=== PATIENT | female | born 1970 | race African-American/Black ===

== ENCOUNTER 2016-09-13 10:21 | Emergency (ER) | payer MEDICAID ==
[~2016-09-13] VITALS: Ht 157.5 cm; Wt 111.1 kg
[~2016-09-13 10:21] MED LIST: GLIPIZIDE5 MG ORAL; LEVEMIR100 UNIT/1 SUBQ; METFORMIN HCL500 M1 ORAL; NOVOLOG100 UNIT/4 SQ; PENICILLIN V P500 MG PO; PHENAZOPYRIDIN100 MG ORAL
[2016-09-13] MEDS ORDERED: IRON325 M1 PO (10:29)
[2016-09-13] MEDS ORDERED: LANTUS SOL100 UNIT/1 SUBQ (10:29)
[2016-09-13] MEDS ORDERED: LISINOPRIL5 MG ORAL (10:29)
[2016-09-13] MEDS ORDERED: METFORMIN HCL850 M1 ORAL (10:29)
[2016-09-13 10:40] VITALS: BP 103/58
[2016-09-13] MEDS ORDERED: Ipratropium 0.02% Inh Soln 2.5ml UD HHN ONE (10:45)
[2016-09-13] MEDS ORDERED: Albuterol ud Inhalation HHN ONE (10:45)
--- NOTE | 2016-09-13 10:55 | Emergency Room Report ---
History of Present Illness General Chief Complaint: Upper Respiratory Illness Source: Patient Present Illness HPI Patient presents with complaints of cough and congestion She noticed some wheezing as well which is unusual for her Denies any vomiting or diarrhea Denies any fevers she had some mild chills Denies any back or flank pain Denies any chest pain however she did feel short of breath at times with increased cough Denies any neck pain or photophobia Allergies: Coded Allergies: No Known Allergies (Verified Allergy, Mild, 02/10/11) Patient History Past Medical History: see triage record Pertinent Family History: none Last Menstrual Period: 09/13/16 Reviewed Nursing Documentation: PMH: Agreed, PSxH: Agreed Nursing Documentation-PMH Past Medical History: No History, Except For Hx Diabetes: Yes Review of Systems All Other Systems: negative except mentioned in HPI Physical Exam Vital Signs Date Time Temp Pulse Resp B/P Pulse Ox O2 Delivery O2 Flow Rate FiO2 09/13/16 10:23 98.6 89 18 120/67 96 Room Air Sp02 EP Interpretation: reviewed, normal General Appearance: well appearing, no apparent distress Head: normocephalic, atraumatic Eyes: bilateral eye EOMI, bilateral eye PERRL ENT: hearing grossly normal, normal pharynx, TMs + canals normal, uvula midline Neck: full range of motion, supple, no meningismus, no bony tend Respiratory: no rhonchi, no respiratory distress, no retraction, no accessory muscle use, crackles - Fine crackles with the finding wheezing noted in both mid lobes Cardiovascular #1: normal peripheral pulses, regular rate, rhythm, no edema, no gallop, no JVD, no murmur Gastrointestinal: normal bowel sounds, non tender, soft, no mass, no organomegaly, non-distended, no guarding, no hernia, no pulsatile mass, no rebound Genitourinary: no CVA tenderness Musculoskeletal: normal inspection Neurologic: oriented x3, responsive, planning aide III-XII nml as tested, motor strength/ tone normal, sensory intact Psychiatric: mood/affect normal Skin: normal color, no rash, warm/dry, palpation normal Lymphatic: normal inspection, no adenopathy Medical Decision Making Diagnostic Impression: Primary Impression: Upper respiratory infection ER Course Given the patient's presentation imaging study was obtained There are some increased markings in the right side compared to before Patient continues to saturate well no signs of any respiratory distress And will have initial conservative outpatient trial on antibiotics Chest X-Ray Diagnostic Results EP Interpretation: Yes Findings: no effusion, no pneumothorax, other - Right lower lobe increased marking, possible early pneumonia versus, other Number of Views: 1 Last Vital Signs Date Time Temp Pulse Resp B/P Pulse Ox O2 Delivery O2 Flow Rate FiO2 09/13/16 10:40 75 15 Room Air 09/13/16 10:40 98.0 103/58 100 Status: improved Disposition: HOME, SELF-CARE Condition: Improved Scripts Prednisone* (PREDNISONE*) 20 Mg Tablet 20 MG ORAL BID, #6 TAB Prov: CHRISTOPHER HUTSON D.O. 09/13/16 Albuterol Sulfate* (ALBUTEROL SULFATE MDI*) 8.5 Gm Hfa.aer.ad 2 PUFF INH Q6H, #1 EA 0 Refills Prov: CHRISTOPHER HUTSON D.O. 09/13/16 Referrals: NON PHYSICIAN (PCP) Additional Instructions: Patient is provided with the discharge instructions notified to follow up with primary doctor in the next 2-3 days otherwise return to the er with any worsening symptoms. Please note that this report is being documented using [employer] technology. This can lead to erroneous entry secondary to incorrect interpretation by the dictating instrument. CHRISTOPHER HUTSON D.O. Sep 13, 2016 10:54
[2016-09-13 11:30] VITALS: BP 113/69
[2016-09-13] MEDS ORDERED: PREDNISONE20 MG ORAL (11:45)
[2016-09-13] MEDS ORDERED: AZITHROMYCIN250 MG ORAL (11:45)
[2016-09-13] MEDS ORDERED: ALBUTEROL SULF8.5 GM INH (11:45)
[2016-09-13 12:00] VITALS: BP 113/69
--- NOTE | 2016-09-13 12:29 | Diagnostic Imaging Report ---
Clinical history: Shortness of breath Technique: Portable AP chest radiograph was obtained. Comparison: 12/15/13. Findings: Exam sensitivity is diminished due to patient's body habitus. Lung volumes are low. Subtle opacity in the right lung base may represent atelectasis or pneumonia. There is no pulmonary edema. There is no pleural effusion or pneumothorax. The cardiac and mediastinal silhouettes are normal in appearance. The bony thorax is unremarkable. Impression: Low lung volumes with suspected atelectasis or developing pneumonia in the right lower lung. Clinical correlation and followup PA and lateral chest radiographs in full inspiration after appropriate therapy is recommended to ensure resolution.
== END 2016-09-13 12:02 | disposition home or self-care (01) ==
LOC: EMR 10:42
DX: J06.9 Acute upper respiratory infection, unspecified (principal)
CPT/HCPCS: 71010; 94640; 94664; 99284

== ENCOUNTER 2017-01-20 03:25 | Emergency (ER) | payer MEDICAID ==
[~2017-01-20] VITALS: Ht 160 cm; Wt 108.0 kg
[~2017-01-20 03:25] MED LIST changes: +ALBUTEROL SULF8.5 GM INH; +AZITHROMYCIN250 MG ORAL; +IRON325 M1 PO; +LANTUS SOL100 UNIT/1 SUBQ; +LISINOPRIL5 MG ORAL; +METFORMIN HCL850 M1 ORAL; +PREDNISONE20 MG ORAL
[2017-01-20 03:40] VITALS: BP 116/71
[2017-01-20] MEDS ORDERED: PredniSONE 20mg tab ORAL ONE (03:45)
[2017-01-20] MEDS ORDERED: Ipratropium 0.02% Inh Soln 2.5ml UD HHN ONE (03:45)
[2017-01-20] MEDS ORDERED: Albuterol ud Inhalation HHN ONE (03:45)
--- NOTE | 2017-01-20 03:46 | Emergency Room Report ---
History of Present Illness General Chief Complaint: Dyspnea/Respdistress Source: Patient Present Illness HPI Is a 46-year-old female with history of diabetes and high blood pressure. She had several ER visit for wheezing and diagnosed with bronchitis. Never had a definitive diagnosis of asthma. She does use an inhaler at home. She presents with coughing and wheezing for the last couple days. No fever or chills no nausea no vomiting. No chest pain. Allergies: Coded Allergies: No Known Allergies (Verified Allergy, Mild, 02/10/11) Patient History Past Medical History: see triage record, old chart reviewed, DM, HTN Past Surgical History: other Pertinent Family History: none Social History: Denies: alcohol use Last Menstrual Period: 12/25/16 Now: No Immunizations: other Reviewed Nursing Documentation: PMH: Agreed, PSxH: Agreed Nursing Documentation-PMH Past Medical History: No History, Except For Hx Diabetes: Yes Review of Systems Eye: Denies: blurred vision, eye pain ENT: Denies: ear pain, nose congestion, throat swelling Respiratory: Reports: cough, shortness of breath, wheezing Cardiovascular: Denies: chest pain, palpitations Gastrointestinal: Denies: abdominal pain, diarrhea, nausea, vomiting Musculoskeletal: Denies: back pain, joint pain Skin: Denies: rash Neurological: Denies: headache, numbness Endocrine: Denies: increased thirst, increased urine Hematologic/Lymphatic: Denies: easy bruising All Other Systems: negative except mentioned in HPI Physical Exam Vital Signs Date Time Temp Pulse Resp B/P Pulse Ox O2 Delivery O2 Flow Rate FiO2 01/20/17 03:31 98.1 82 16 116/71 100 Room Air vitals unremarkable Sp02 EP Interpretation: reviewed, normal General Appearance: well appearing, no apparent distress, alert Head: normocephalic, atraumatic Eyes: bilateral eye EOMI, bilateral eye PERRL ENT: hearing grossly normal, normal pharynx Neck: full range of motion, supple, no meningismus Respiratory: chest non-tender, wheezing - Slight Cardiovascular #1: regular rate, rhythm, no murmur Gastrointestinal: normal bowel sounds, non tender, no mass, no organomegaly, no bruit, non-distended Musculoskeletal: back normal, gait/station normal, normal range of motion Psychiatric: mood/affect normal Skin: warm/dry Medical Decision Making Diagnostic Impression: Primary Impression: Asthma exacerbation Additional Impression: Viral respiratory illness ER Course Presents with respiratory illness and wheezing. Most likely asthma. She fell better now and no longer wheezing. We'll discharge home. Clinically no evidence of ACS, PE, dissection to name a few. Last Vital Signs Date Time Temp Pulse Resp B/P Pulse Ox O2 Delivery O2 Flow Rate FiO2 01/20/17 03:31 98.1 82 16 116/71 100 Room Air Status: improved Disposition: HOME, SELF-CARE Condition: Stable Scripts Prednisone* (PREDNISONE*) 20 Mg Tablet 60 MG ORAL DAILY, #12 TAB Prov: EKATERINA GEE M.D. 01/20/17 Albuterol Sulfate* (ALBUTEROL SULFATE MDI*) 8.5 Gm Hfa.aer.ad 2 PUFF INH Q4H Y for cough/wheezing, #1 EA 0 Refills Prov: EKATERINA GEE M.D. 01/20/17 Additional Instructions: Followup with your Dr. in 2-3 days. Return if symptom worsen. You may end up with diagnosis of asthma. EKATERINA GEE M.D. Jan 20, 2017 03:46
[2017-01-20 04:15] VITALS: BP 130/67
[2017-01-20] MEDS ORDERED: ALBUTEROL SULF8.5 GM INH (04:25)
[2017-01-20] MEDS ORDERED: PREDNISONE20 MG ORAL (04:25)
[2017-01-20 04:34] VITALS: BP 130/67
== END 2017-01-20 04:35 | disposition home or self-care (01) ==
LOC: EMR 03:38
DX: J45.901 Unspecified asthma with (acute) exacerbation (principal); B34.9 Viral infection, unspecified; E11.9 Type 2 diabetes mellitus without complications
CPT/HCPCS: 94640; 94664; 99284

== ENCOUNTER 2018-01-14 16:30 | Emergency (ER) | payer MEDICAID ==
[~2018-01-14] VITALS: Ht 157.5 cm; Wt 105.2 kg
--- NOTE | 2018-01-14 17:20 | Emergency Room Report ---
History of Present Illness General Chief Complaint: Lower Extremity Injury Source: Patient Present Illness HPI 47-year-old female presents emergency department complaining of 9 out of 10 in severity localized right sided lateral foot pain and ankle pain status post chemical trip and fall approximately 2 hours ago. Patient states she was out shopping and when she was outside she describes having an inversion injury. states that she was walking normally and she just, tripped over her own foot. Patient denies dizziness prior to fall she denies chest pain or palpitations. She reports history of diabetes she states that she has noticed that she has had 3 falls within the last few weeks this time she actually fell to the time she caught herself however she states it is unusual for her. Patient states she did not hit her head she did not lose consciousness does not have pain elsewhere on the body. Patient reports swelling to the lateral right ankle. Patient states that posterior ankle and medial ankle are fine and are not tender. Denies numbness tingling or loss of sensation or gross motor movements of the extremities, incontinence of bowel or bladder. Denies CP, Palpitations, LOC, AMS, dizziness, Changes in Vision, weakness or a sudden severe headache. Allergies: Coded Allergies: No Known Allergies (Verified Allergy, Mild, 02/10/11) Patient History Past Medical History: see triage record Past Surgical History: none Pertinent Family History: none Last Menstrual Period: 01/12/18 Now: No : 3 Para: 2 Immunizations: UTD Reviewed Nursing Documentation: PMH: Agreed; PSxH: Agreed Nursing Documentation-PMH Past Medical History: No History, Except For Hx Diabetes: Yes Review of Systems All Other Systems: negative except mentioned in HPI Physical Exam Vital Signs Date Time Temp Pulse Resp B/P (MAP) Pulse Ox O2 Delivery O2 Flow Rate FiO2 01/14/18 16:41 98.0 93 18 100/60 98 Room Air 98.1 Sp02 EP Interpretation: reviewed, normal General Appearance: no apparent distress, alert, GCS 15, non-toxic Head: normocephalic, atraumatic ENT: hearing grossly normal, normal voice Neck: full range of motion Respiratory: lungs clear, normal breath sounds, speaking full sentences Cardiovascular #1: regular rate, rhythm, no edema, normal capillary refill Cardiovascular #2: 2+ dorsalis pedis (R) Musculoskeletal: back normal, normal range of motion, swelling - right lateral ankle, tender - Right lateral ankle Neurologic: alert, oriented x3, responsive, motor strength/tone normal, sensory intact, speech normal, grossly normal Psychiatric: judgement/insight normal Skin: normal color, no rash, warm/dry, well hydrated Medical Decision Making BEATRIZ Attestation Dr. Perdue is my supervising Physician whom patient management has been discussed with. Diagnostic Impression: Primary Impression: Fibula fracture Qualified Codes: S82.821A - Torus fracture of lower end of right fibula, initial encounter for closed fracture ER Course 47-year-old female presents emergency department complaining of 9 out of 10 in severity localized right sided lateral foot pain and ankle pain status post chemical trip and fall approximately 2 hours ago. Patient states she was out shopping and when she was outside she describes having an inversion injury. states that she was walking normally and she just, tripped over her own foot. Patient denies dizziness prior to fall she denies chest pain or palpitations. She reports history of diabetes she states that she has noticed that she has had 3 falls within the last few weeks this time she actually fell to the time she caught herself however she states it is unusual for her. Patient states she did not hit her head she did not lose consciousness does not have pain elsewhere on the body. Patient reports swelling to the lateral right ankle. Patient states that posterior ankle and medial ankle are fine and are not tender. Denies numbness tingling or loss of sensation or gross motor movements of the extremities, incontinence of bowel or bladder. Denies CP, Palpitations, LOC, AMS, dizziness, Changes in Vision, weakness or a sudden severe headache. Ddx considered but are not limited to Fracture, dislocation, contusion, Sprain/ Strain/Spasm Vital signs: are WNL, pt. is afebrile H&PE are most consistent with musculoskeletal injury will perform imaging to r/ o fractures/dislocations. ORDERS: - X-ray Right ankle 3 views - negative for fx, Dislocation, or significant soft tissue injury, per preliminary read in ED, and signed by BEATRIZ Bain , my supervising physician has reviewed, and agrees with my interpretation. ED INTERVENTIONS: - Motrin PO- pt. is driving. - Stirrup Splint applied to the right ankle by electroencephalograph technologist. pt. remains NVI before and after application. -Patient is provided with crutches and instructed on their use DISCHARGE: At this time pt. is stable for d/c to home. Will provide printed patient care instructions, and any necessary prescriptions. Care plan and follow up instructions have been discussed with the patient prior to discharge. Other X-Ray Diagnostic Results Other X-Ray Diagnostic Results : X-Ray ordered: Right ankle # of Views/Limited Vs Complete: 3 View Indication: Pain EP Interpretation: Yes PA Xray: Interpretation reviewed, by supervising MD, and agrees with findings. Interpretation: no dislocation, no soft tissue swelling, other - distal nondisplaced fibular fracture Impression: Other - abnormal Electronically Signed by: Lakeshia Bain PA-C Last Vital Signs Date Time Temp Pulse Resp B/P (MAP) Pulse Ox O2 Delivery O2 Flow Rate FiO2 01/14/18 17:10 98.0 01/14/18 16:41 93 18 100/60 98 Room Air Disposition: HOME, SELF-CARE Condition: Stable Patient Instructions: Ankle Fracture, Fibular Ankle Fracture Treated With or Without Immobilization, Adult Additional Instructions: Take medications as directed. Follow up with a Primary Care Provider in 3-5 days For ORTHOPEDIC FOLLOW UP REFERRAL, even if your symptoms have resolved. --Please review list of primary care clinics, if you do not already have a primary care provider Return sooner to ED if new symptoms occur, or current symptoms become worse. Do not drink alcohol, drive, or operate heavy machinery while taking [place] as this may cause drowsiness. - Please note that this Emergency Department Report was dictated using [employer] store manager technology software, occasionally this can lead to erroneous entry secondary to interpretation by the dictation equipment. Lakeshia Bain Jan 14, 2018 17:19
[2018-01-14] MEDS ORDERED: NORCO 5-325 TA1 EACH ORAL (17:49)
[2018-01-14] MEDS ORDERED: IBUPROFEN600 MG ORAL (17:49)
[2018-01-14 18:10] VITALS: BP 135/67
--- NOTE | 2018-01-14 18:16 | Diagnostic Imaging Report ---
EXAM: XR Right Ankle Complete, 3 Views CLINICAL HISTORY: PAIN TECHNIQUE: Frontal, lateral and oblique views of the right ankle. COMPARISON: No relevant prior studies available. FINDINGS: Bones/joints: Oblique fracture through the distal aspect of the fibula. No plain film evidence for dislocation. Posterior calcaneal bone spur. Soft tissues: Soft tissue swelling about the ankle. IMPRESSION: Oblique fracture through the distal aspect of the fibula.
== END 2018-01-14 18:34 | disposition home or self-care (01) ==
LOC: EMR 17:43
DX: S82.821A Torus fracture of lower end of right fibula, initial encounter for closed fracture (principal); W19.XXXA Unspecified fall, initial encounter; Y92.512 Supermarket, store or market as the place of occurrence of the external cause; E11.9 Type 2 diabetes mellitus without complications
CPT/HCPCS: 99283

== ENCOUNTER 2018-01-16 20:34 | Emergency (ER) | payer MEDICAID ==
[~2018-01-16] VITALS: Ht 160 cm; Wt 104.3 kg
[~2018-01-16 20:34] MED LIST changes: +IBUPROFEN600 MG ORAL; +NORCO 5-325 TA1 EACH ORAL
[2018-01-16 21:23] VITALS: BP 103/56
--- NOTE | 2018-01-16 22:46 | Emergency Room Report ---
History of Present Illness General Chief Complaint: Lower Extremity Injury Source: Patient Present Illness HPI 47-year-old female presents ED for evaluation. Patient complaining of right ankle pain and swelling. Was seen here 2 days ago noted have fibula fracture. Patient was splinted. Given crutches. Patient states she is here because she noticed increased swelling. Pain is throbbing, 8 out of 10, nonradiating. Denies chest pain or shortness of breath. Denies fevers chills. No other aggravating relieving factors. Denies any other associated symptoms Allergies: Coded Allergies: No Known Allergies (Verified Allergy, Mild, 02/10/11) Patient History Past Medical History: DM Pertinent Family History: none Social History: Denies: smoking, alcohol use, drug use Last Menstrual Period: 01/10/18 Now: No Immunizations: UTD Reviewed Nursing Documentation: PMH: Agreed; PSxH: Agreed Nursing Documentation-PMH Past Medical History: No History, Except For Hx Diabetes: Yes Hx Neurological Problems: No - Fibula Fracture Review of Systems All Other Systems: negative except mentioned in HPI Physical Exam Vital Signs Date Time Temp Pulse Resp B/P (MAP) Pulse Ox O2 Delivery O2 Flow Rate FiO2 01/16/18 20:52 98.3 89 16 103/56 98 Room Air 98.2 Sp02 EP Interpretation: reviewed, normal General Appearance: no apparent distress, alert, GCS 15, non-toxic Head: normocephalic Eyes: bilateral eye normal inspection, bilateral eye PERRL ENT: normal ENT inspection Neck: normal inspection Respiratory: normal inspection Cardiovascular #1: normal inspection Gastrointestinal: normal inspection Rectal: deferred Genitourinary: no CVA tenderness Musculoskeletal: no calf tenderness, swelling - R ankle Neurologic: alert, oriented x3, responsive, motor strength/tone normal, sensory intact, speech normal Psychiatric: judgement/insight normal, memory normal, mood/affect normal, no suicidal/homicidal ideation Skin: normal color, no rash, warm/dry, well hydrated Lymphatic: normal inspection Medical Decision Making Diagnostic Impression: Primary Impression: Fibula fracture Qualified Codes: S82.831D - Other fracture of upper and lower end of right fibula, subsequent encounter for closed fracture with routine healing Additional Impression: Aftercare for cast or splint check or change ER Course Hospital Course 47-year-old female presents ED complaining of right ankle pain and swelling. Status post fibula fracture Clinical course Patient placed on stretcher. After initial history physical exam reveals a middle-aged female in no acute distress. There is some swelling noted to the right ankle. Distal pulses intact. Skin is warm and dry. No skin mottling. No calf tenderness. My suspicion for DVT is low. My suspicion for compartment syndrome is low. This is most likely appropriate swelling given the fracture. Patient states she was not aware that there would be swelling so she became concerned. I also believe that the splint was applied too tight We will reapply the splint accordingly. I believe patient is safe for discharge and will follow up with Ortho as scheduled Diagnosis - fibula fx, aftecare for cast or splint check Stable and discharged to home. Apply ice. Keep elevated. Followup with ortho. Return to ED if any signs of infection develop Last Vital Signs Date Time Temp Pulse Resp B/P (MAP) Pulse Ox O2 Delivery O2 Flow Rate FiO2 01/16/18 21:23 98.3 16 103/56 98 Room Air 98.2 01/16/18 20:52 89 Status: improved Disposition: HOME, SELF-CARE Condition: Stable Referrals: Bert Andujar MD NON PHYSICIAN (PCP) Patient Instructions: Fibular Fracture With [facility] Maurice Dias MD Jan 16, 2018 22:46
== END 2018-01-16 21:23 | disposition home or self-care (01) ==
LOC: EMR 21:05
DX: S82.401D Unspecified fracture of shaft of right fibula, subsequent encounter for closed fracture with routine healing (principal); X58.XXXD Exposure to other specified factors, subsequent encounter; Z47.89 Encounter for other orthopedic aftercare; E11.9 Type 2 diabetes mellitus without complications
CPT/HCPCS: 99282